=== PATIENT | male | born 1960 | race Hispanic/Latino ===

== ENCOUNTER 2018-03-31 20:03 | Emergency (ER) | payer SELFPAY ==
--- NOTE | 2018-03-31 20:32 | ER ---
Nurse's Notes [facility] Name: Pancho Caballero Age: 58 yrs Sex: Male : 1960 Arrival Date: 03/31/2018 Time: 20:06 Bed 19 Private MD: Diagnosis: Irritant contact dermatitis due to plants, except food Presentation: 03/31 20:17 Presenting complaint: Patient states: "I've had this rash for about a week now, I think bs1 its poison oak, I've had chills, its all over an getting worse.". Transition of care: patient was not received from another setting of care. Onset of symptoms was March 24, 2018. Risk Assessment: Do you want to hurt yourself or someone else? Patient reports no desire to harm self or others. Initial Sepsis Screen: Does the patient meet any 2 criteria? No. Patient's initial sepsis screen is negative. Does the patient have a suspected source of infection? No. Patient's initial sepsis screen is negative. Care prior to arrival: None. 20:17 Method Of Arrival: Ambulatory bs1 20:17 Acuity: HUSSAIN 4 bs1 Historical: - Allergies: 20:21 poison oak/MACARIO; bs1 - Home Meds: 20:21 Lisinopril Oral [Active]; Gemfibrozil Oral [Active]; Metformin Oral [Active]; bs1 Metoprolol Tartrate Oral [Active]; Glipizide Oral [Active]; - PMHx: 20:21 High Cholesterol; Hypertension; Diabetes - NIDDM; bs1 - PSHx: 20:21 None; bs1 - Immunization history:: Adult Immunizations up to date. - Social history:: Smoking status: Patient uses tobacco products, denies chronic smoking, but will smoke occasionally. - Ebola Screening: : Patient negative for fever greater than or equal to 101.5 degrees Fahrenheit, and additional compatible Ebola Virus Disease symptoms Patient denies exposure to infectious person. Screenin:22 Abuse screen: Denies threats or abuse. Denies injuries from another. Nutritional bs1 screening: No deficits noted. Tuberculosis screening: No symptoms or risk factors identified. Fall Risk None identified. Assessment: 20:22 General: Appears uncomfortable, Behavior is calm, cooperative, appropriate for age. bs1 General: Reports chills for 2-3 days. Pain: Complains of pain in generalized body due to rash. Neuro: Level of Consciousness is awake, alert, obeys commands, Oriented to person, place, time, situation, Appropriate for age. Cardiovascular: Denies. Cardiovascular: Denies chest pain, shortness of breath. Respiratory: Airway is patent Breath sounds are clear bilaterally. GI: No signs and/or symptoms were reported involving the gastrointestinal system. : No signs and/or symptoms were reported regarding the genitourinary system. Derm: Skin has blisters on bilateral shoulders/back, some open blisters Rash noted that is draining pus, on generalized contact dermatitis rash from poison oak, patient reports allergy to poison oak/MACARIO. Musculoskeletal: Circulation, motion, and sensation intact. Capillary refill < 3 seconds, Range of motion: intact in all extremities. 20:55 Reassessment: Patient appears in no apparent distress at this time. Patient and/or bs1 family updated on plan of care and expected duration. Pain level reassessed. Patient is alert, oriented x 3, equal unlabored respirations, skin warm/dry/pink. Patient states symptoms have improved. Vital Signs: 20:21 BP 159 / 86; Pulse 103; Resp 19; Temp 98.6(O); Pulse Ox 100% on R/A; Weight 104.33 kg; bs1 Height 5 ft. 9 in. (175.26 cm); Pain 7/10; 20:55 BP 158 / 86; Pulse 98; Resp 18; Pulse Ox 100% on R/A; Pain 4/10; bs1 20:21 Body Mass Index 33.96 (104.33 kg, 175.26 cm) bs1 ED Course: 20:06 Patient arrived in ED. es 20:07 Salomon Acevedo NP is PHCP. pm1 20:07 Navneet Nunez MD is Attending Physician. pm1 20:08 Cate Garner RN is Primary Nurse. bs1 20:19 Triage completed. bs1 20:22 Patient has correct armband on for positive identification. Bed in low position. Call bs1 light in reach. Side rails up X 1. Pulse ox on. NIBP on. 20:25 Arm band placed on right wrist. bs1 20:53 No provider procedures requiring assistance completed. Patient did not have IV access bs1 during this emergency room visit. Administered Medications: 20:37 Drug: SOLU-Medrol 125 mg Route: IM; Site: left gluteus; bs1 20:54 Follow up: Response: No adverse reaction bs1 20:37 Drug: Benadryl 25 mg Route: PO; bs1 20:54 Follow up: Response: No adverse reaction bs1 Outcome: 20:32 Discharge ordered by MD. pm1 20:53 Discharged to home ambulatory, with significant other. bs1 20:53 Condition: stable 20:53 Discharge instructions given to patient, Instructed on discharge instructions, follow up and referral plans. medication usage, Demonstrated understanding of instructions, follow-up care, medications, Prescriptions given X 3. 20:55 Patient left the ED. bs1 Signatures: Thalia Ochoa Patrick, NP PACKAGE WORKER pm1 Cate Garner RN RN bs1
--- NOTE | 2018-03-31 20:32 | EDPHYS ---
Physician Documentation [facility] Name: Pancho Caballero Age: 58 yrs Sex: Male : 1960 Arrival Date: 03/31/2018 Time: 20:06 Bed 19 Private MD: ED Physician Navneet Nunez HPI: 03/31 20:27 This 58 yrs old Male presents to ER via Ambulatory with complaints of Rash. pm1 20:27 The patient's rash thought to be caused by Dermatitis. The rash is located on the pm1 chest, abdomen, right arm and left arm. The rash can be described as macular, raised. Onset: The symptoms/episode began/occurred 1 week(s) ago. Associated signs and symptoms: Pertinent positives: itching, Pertinent negatives: difficulty breathing, fever, swelling of lips, swelling of throat, swelling of tongue, wheezing. Severity of symptoms: in the emergency department the symptoms are unchanged. Treatment given at home: OTC lotion/cream. The patient has not experienced similar symptoms in the past. Patient was cutting poison oak with a weed eater while he was trimming his lawn and the poison oak landed on his arms and chest. Historical: - Allergies: 20:21 poison oak/MACARIO; bs1 - Home Meds: 20:21 Lisinopril Oral [Active]; Gemfibrozil Oral [Active]; Metformin Oral [Active]; bs1 Metoprolol Tartrate Oral [Active]; Glipizide Oral [Active]; - PMHx: 20:21 High Cholesterol; Hypertension; Diabetes - NIDDM; bs1 - PSHx: 20:21 None; bs1 - Immunization history:: Adult Immunizations up to date. - Social history:: Smoking status: Patient uses tobacco products, denies chronic smoking, but will smoke occasionally. - Ebola Screening: : Patient negative for fever greater than or equal to 101.5 degrees Fahrenheit, and additional compatible Ebola Virus Disease symptoms Patient denies exposure to infectious person. ROS: 20:27 Constitutional: Negative for fever, chills, and weight loss, Eyes: Negative for injury, pm1 pain, redness, and discharge, ENT: Negative for injury, pain, and discharge, Neck: Negative for injury, pain, and swelling, Cardiovascular: Negative for chest pain, palpitations, and edema, Respiratory: Negative for shortness of breath, cough, wheezing, and pleuritic chest pain, Abdomen/GI: Negative for abdominal pain, nausea, vomiting, diarrhea, and constipation, Back: Negative for injury and pain, : Negative for injury, bleeding, discharge, and swelling, MS/Extremity: Negative for injury and deformity. 20:27 Skin: Positive for rash, of the left arm and right arm and abdomen and chest. Exam: 20:27 Constitutional: This is a well developed, well nourished patient who is awake, alert, pm1 and in no acute distress. Head/Face: Normocephalic, atraumatic. Eyes: Pupils equal round and reactive to light, extra-ocular motions intact. Lids and lashes normal. Conjunctiva and sclera are non-icteric and not injected. Cornea within normal limits. Periorbital areas with no swelling, redness, or edema. ENT: Nares patent. No nasal discharge, no septal abnormalities noted. Tympanic membranes are normal and external auditory canals are clear. Oropharynx with no redness, swelling, or masses, exudates, or evidence of obstruction, uvula midline. Mucous membranes moist. Neck: Trachea midline, no thyromegaly or masses palpated, and no cervical lymphadenopathy. Supple, full range of motion without nuchal rigidity, or vertebral point tenderness. No Meningismus. Chest/axilla: Normal chest wall appearance and motion. Nontender with no deformity. No lesions are appreciated. Cardiovascular: Regular rate and rhythm with a normal S1 and S2. No gallops, murmurs, or rubs. Normal PMI, no JVD. No pulse deficits. Respiratory: Lungs have equal breath sounds bilaterally, clear to auscultation and percussion. No rales, rhonchi or wheezes noted. No increased work of breathing, no retractions or nasal flaring. Back: No spinal tenderness. No costovertebral tenderness. Full range of motion. 20:27 Skin: Appearance: normal except for affected area, consistent with contact dermatitis. 20:27 Neuro: Orientation: is normal, Motor: is normal, moves all fours. Vital Signs: 20:21 BP 159 / 86; Pulse 103; Resp 19; Temp 98.6(O); Pulse Ox 100% on R/A; Weight 104.33 kg; bs1 Height 5 ft. 9 in. (175.26 cm); Pain 7/10; 20:55 BP 158 / 86; Pulse 98; Resp 18; Pulse Ox 100% on R/A; Pain 4/10; bs1 20:21 Body Mass Index 33.96 (104.33 kg, 175.26 cm) bs1 MDM: 20:08 Patient medically screened. pm1 20:31 Data reviewed: vital signs. Data interpreted: Pulse oximetry: on room air is 100 %. pm1 Interpretation: normal. Counseling: I had a detailed discussion with the patient and/or guardian regarding: the historical points, exam findings, and any diagnostic results supporting the discharge/admit diagnosis, the need for outpatient follow up, to return to the emergency department if symptoms worsen or persist or if there are any questions or concerns that arise at home. Administered Medications: 20:37 Drug: SOLU-Medrol 125 mg Route: IM; Site: left gluteus; bs1 20:54 Follow up: Response: No adverse reaction bs1 20:37 Drug: Benadryl 25 mg Route: PO; bs1 20:54 Follow up: Response: No adverse reaction bs1 Disposition: 21:09 Co-signature as Attending Physician, Navneet Nunez MD I agree with the assessment and kdr plan of care. Disposition: 03/31/18 20:32 Discharged to Home. Impression: Irritant contact dermatitis due to plants, except food. - Condition is Stable. - Discharge Instructions: Contact Dermatitis, Poison [place]. - Prescriptions for Xyzal 5 mg Oral tablet - take 1 tablet by ORAL route once daily As needed; 30 tablet. Medrol (Cal) 4 mg Oral Tablets, Dose Pack - take 1 tablet by ORAL route as directed - follow package instructions; 1 packet. Bactrim DS 800- 160 mg Oral Tablet - take 1 tablet by ORAL route every 12 hours for 10 days; 20 tablet. - Medication Reconciliation Form, Thank You Letter, Antibiotic Education form. - Follow up: Emergency Department; When: As needed; Reason: Worsening of condition. Follow up: Private Physician; When: 2 - 3 days; Reason: Recheck today's complaints, Continuance of care, Re-evaluation by your physician. - Problem is new. - Symptoms have improved. Signatures: Navneet Nunez MD MD kdr Marinas, Patrick, NP [employer] SAL[employer] pm1 Cate Garner RN RN bs1 Corrections: (The following items were deleted from the chart) 20:55 20:32 03/31/2018 20:32 Discharged to Home. Impression: Irritant contact dermatitis due bs1 to plants, except food. Condition is Stable. Forms are Medication Reconciliation Form, Thank You Letter, Antibiotic Education, Prescription Opioid Use. Follow up: Emergency Department; When: As needed; Reason: Worsening of condition. Follow up: Private Physician; When: 2 - 3 days; Reason: Recheck today's complaints, Continuance of care, Re-evaluation by your physician. Problem is new. Symptoms have improved. pm1
[2018-03-31] MEDS ORDERED: DIPHENHYDRAMINE 25 MG TAB/CAP ONE (20:35)
[2018-03-31] MEDS ORDERED: METHYLPREDNISOLONE 125 MG INJ ONE (20:35)
== END 2018-03-31 20:55 | disposition home or self-care (01) ==
LOC: ER 20:03
DX: L24.7 Irritant contact dermatitis due to plants, except food (principal); I10 Essential (primary) hypertension; E11.9 Type 2 diabetes mellitus without complications
CPT/HCPCS: 96372; 99283; J2930

== ENCOUNTER 2018-07-31 05:43 | Emergency (ER) | payer SELFPAY ==
--- NOTE | 2018-07-31 06:12 | ER ---
Nurse's Notes [facility] Name: Pancho Caballero Age: 58 yrs Sex: Male : 1960 Arrival Date: 07/31/2018 Time: 05:46 Bed 14 Private MD: DARIEL CONRAD Diagnosis: Pain in left leg Presentation: 07/31 06:00 Presenting complaint: Patient states: spasms in his L quadriceps x 3 weeks. Reports it aa1 began when he slipped off a trailer and has been taking muscle relaxers that his PCP prescribed him for it but it still has not resolved. Amb w/steady gait. CMS intact. Transition of care: patient was not received from another setting of care. Onset of symptoms was July 07, 2018. Risk Assessment: Do you want to hurt yourself or someone else? Patient reports no desire to harm self or others. Initial Sepsis Screen: Does the patient meet any 2 criteria? No. Patient's initial sepsis screen is negative. Does the patient have a suspected source of infection? No. Patient's initial sepsis screen is negative. Care prior to arrival: None. 06:00 Method Of Arrival: Ambulatory aa1 06:00 Acuity: HUSSANI 4 aa1 Historical: - Allergies: 06:07 poison oak/MACARIO; aa1 - Home Meds: 06:07 gemfibrozil 600 mg oral tab 1 tab 2 times per day [Active]; metoprolol tartrate 50 mg aa1 oral tab 1 tab 2 times per day [Active]; metformin 1,000 mg oral tab 1 tab 2 times per day [Active]; lisinopril 20 mg oral tab 1 tab twice a day [Active]; glipizide 10 mg oral tab 2 tabs 2 times per day [Active]; cyclobenzaprine 10 mg Oral tab 1 tab 2 times per day [Active]; - PMHx: 06:07 Diabetes - NIDDM; High Cholesterol; Hypertension; aa1 - PSHx: 06:07 None; aa1 - Immunization history:: Flu vaccine is not up to date. - Social history:: Smoking status: Patient uses tobacco products, denies chronic smoking, but will smoke occasionally. - Ebola Screening: : No symptoms or risks identified at this time. Screenin:00 Abuse screen: Denies threats or abuse. Denies injuries from another. Nutritional aa1 screening: No deficits noted. Tuberculosis screening: No symptoms or risk factors identified. Fall Risk None identified. Assessment: 06:00 General: Appears in no apparent distress. comfortable, Behavior is calm, cooperative, aa1 appropriate for age. Pain: Complains of pain in left quadriceps Pain currently is 10 out of 10 on a pain scale. Pain began 3 weeks ago. Neuro: Level of Consciousness is awake, alert, obeys commands, Oriented to person, place, time, situation, Moves all extremities. Gait is steady. Respiratory: Airway is patent Respiratory effort is even, unlabored, Respiratory pattern is regular, symmetrical. GI: No signs and/or symptoms were reported involving the gastrointestinal system. : No signs and/or symptoms were reported regarding the genitourinary system. EENT: No signs and/or symptoms were reported regarding the EENT system. Derm: Skin is intact, is healthy with good turgor, Skin is pink, warm \T\ dry. Musculoskeletal: Circulation, motion, and sensation intact. Capillary refill < 3 seconds, Range of motion: intact in all extremities. 06:22 Reassessment: Patient appears in no apparent distress at this time. Patient is alert, aa1 oriented x 3, equal unlabored respirations, skin warm/dry/pink. Discussed d/c \T\ f/u instructions with pt \T\ spouse; denies questions or concerns at this time. Vital Signs: 06:07 BP 142 / 91; Pulse 88; Resp 18; Temp 97.8; Pulse Ox 100% on R/A; Weight 99.79 kg; aa1 Height 5 ft. 9 in. (175.26 cm); Pain 10/10; 06:07 Body Mass Index 32.49 (99.79 kg, 175.26 cm) aa1 ED Course: 05:46 Patient arrived in ED. am2 05:47 DARIEL CONRAD is Private Physician. am2 06:00 Dimple Gant [facility]C [facility]. kb 06:00 Fabian Elliott MD is Attending Physician. kb 06:00 Patient has correct armband on for positive identification. Bed in low position. Call aa1 light in reach. Pulse ox on. NIBP on. 06:02 Triage completed. aa1 06:07 Arm band placed on right wrist. aa1 06:22 Chambers, Blanca, RN is Primary Nurse. aa1 06:22 No provider procedures requiring assistance completed. Patient did not have IV access aa1 during this emergency room visit. Administered Medications: No medications were administered Outcome: 06:11 Discharge ordered by . tara 06:27 Patient left the ED. aa1 Signatures: Dimple Gant, LORELEI-C RECREATIONAL RESORT MANAGER-Blanca Luna, RN RN aa1 Charleen Gee am2
--- NOTE | 2018-07-31 06:12 | EDPHYS ---
Physician Documentation [facility] Name: Pancho Caballero Age: 58 yrs Sex: Male : 1960 Arrival Date: 07/31/2018 Time: 05:46 Bed 14 Private MD: DARIEL CONRAD ED Physician Fabian Elliott HPI: 07/31 06:06 This 58 yrs old Male presents to ER via Ambulatory with complaints of Leg Pain.kb 06:06 The patient presents with pain, that is acute. The complaints affect the left kb quadriceps. Context: The problem was sustained outdoors, resulted from "doing the splits", the patient can fully bear weight, the patient is able to ambulate. Onset: The symptoms/episode began/occurred 3 week(s) ago. Modifying factors: The symptoms are alleviated by nothing. the symptoms are aggravated by nothing. Associated signs and symptoms: The patient has no apparent associated signs or symptoms. Treatment prior to arrival includes: prescription medications, muscle relaxant. Severity of symptoms: At their worst the symptoms were mild, moderate, in the emergency department the symptoms are unchanged. The patient has not experienced similar symptoms in the past. The patient has been recently seen by a physician: the patient's primary care provider, with similar presenting complaints, but the patient's symptoms have persisted. Pt reports he was standing on the back of his truck, his foot slipped and caused him to do the splits. States he thinks he pulled a muscle because it has been hurting since then. Occurred 3 weeks ago. Has been seen by PCP and prescribed Flexeril, but it isn't helping. . Historical: - Allergies: 06:07 poison oak/MACARIO; aa1 - Home Meds: 06:07 gemfibrozil 600 mg oral tab 1 tab 2 times per day [Active]; metoprolol tartrate 50 mg aa1 oral tab 1 tab 2 times per day [Active]; metformin 1,000 mg oral tab 1 tab 2 times per day [Active]; lisinopril 20 mg oral tab 1 tab twice a day [Active]; glipizide 10 mg oral tab 2 tabs 2 times per day [Active]; cyclobenzaprine 10 mg Oral tab 1 tab 2 times per day [Active]; - PMHx: 06:07 Diabetes - NIDDM; High Cholesterol; Hypertension; aa1 - PSHx: 06:07 None; aa1 - Immunization history:: Flu vaccine is not up to date. - Social history:: Smoking status: Patient uses tobacco products, denies chronic smoking, but will smoke occasionally. - Ebola Screening: : No symptoms or risks identified at this time. ROS: 06:06 Constitutional: Negative for fever, chills, and weight loss, Cardiovascular: Negative kb for chest pain, palpitations, and edema, Respiratory: Negative for shortness of breath, cough, wheezing, and pleuritic chest pain, Abdomen/GI: Negative for abdominal pain, nausea, vomiting, diarrhea, and constipation, Skin: Negative for injury, rash, and discoloration, Neuro: Negative for headache, weakness, numbness, tingling, and seizure. 06:06 MS/extremity: Positive for pain, of the left quadriceps. Exam: 06:06 Constitutional: This is a well developed, well nourished patient who is awake, alert, kb and in no acute distress. Head/Face: Normocephalic, atraumatic. Chest/axilla: Normal chest wall appearance and motion. Nontender with no deformity. No lesions are appreciated. Cardiovascular: Regular rate and rhythm with a normal S1 and S2. No gallops, murmurs, or rubs. Normal PMI, no JVD. No pulse deficits. Respiratory: Lungs have equal breath sounds bilaterally, clear to auscultation and percussion. No rales, rhonchi or wheezes noted. No increased work of breathing, no retractions or nasal flaring. Abdomen/GI: Soft, non-tender, with normal bowel sounds. No distension or tympany. No guarding or rebound. No evidence of tenderness throughout. Skin: Warm, dry with normal turgor. Normal color with no rashes, no lesions, and no evidence of cellulitis. Neuro: Awake and alert, GCS 15, oriented to person, place, time, and situation. Cranial nerves II-XII grossly intact. Motor strength 5/5 in all extremities. Sensory grossly intact. Cerebellar exam normal. Normal gait. 06:06 Musculoskeletal/extremity: Extremities: grossly normal except: noted in the left quadriceps: pain, ROM: intact in all extremities, Circulation is intact in all extremities. Sensation intact. Weight bearing: able to fully bear weight. Vital Signs: 06:07 BP 142 / 91; Pulse 88; Resp 18; Temp 97.8; Pulse Ox 100% on R/A; Weight 99.79 kg; aa1 Height 5 ft. 9 in. (175.26 cm); Pain 06/26; 06:07 Body Mass Index 32.49 (99.79 kg, 175.26 cm) aa1 MDM: 06:01 Patient medically screened. kb 06:10 Data reviewed: vital signs, nurses notes. Data interpreted: Pulse oximetry: on room air kb is 100 %. Interpretation: normal. Counseling: I had a detailed discussion with the patient and/or guardian regarding: the historical points, exam findings, and any diagnostic results supporting the discharge/admit diagnosis, the need for outpatient follow up, a family practitioner, to return to the emergency department if symptoms worsen or persist or if there are any questions or concerns that arise at home. Administered Medications: No medications were administered Disposition: 07/31/18 06:11 Discharged to Home. Impression: Pain in left leg. - Condition is Stable. - Discharge Instructions: Musculoskeletal Pain. - Prescriptions for Skelaxin 800 mg Oral Tablet - take 1 tablet by ORAL route every 8 hours As needed; 21 tablet. Diclofenac Sodium 75 mg Oral Tablet, Delayed Release (E.C.) - take 1 tablet by ORAL route 2 times per day As needed; 30 tablet. - Medication Reconciliation Form, Thank You Letter, Antibiotic Education, Prescription Opioid Use form. - Work release form (08/01/18 05:32). ds1 - Follow up: Emergency Department; When: As needed; Reason: Worsening of condition. Follow up: Private Physician; When: 2 - 3 days; Reason: Recheck today's complaints, Continuance of care, Re-evaluation by your physician. Addendum: 08/03/2018 06:40 Co-signature as Attending Physician, Fabian Elliott MD. g s Signatures: Dimple Gant, HERLINDAC LORELEI-Blanca Luna RN RN aa1 Fabian Elliott MD MD gs San[place], Demi ds1 Corrections: (The following items were deleted from the chart) 07/31 06:27 06:11 07/31/2018 06:11 Discharged to Home. Impression: Pain in left leg. Condition is aa1 Stable. Forms are Medication Reconciliation Form, Thank You Letter, Antibiotic Education, Prescription Opioid Use. Follow up: Emergency Department; When: As needed; Reason: Worsening of condition. Follow up: Private Physician; When: 2 - 3 days; Reason: Recheck today's complaints, Continuance of care, Re-evaluation by your physician. kb
== END 2018-07-31 06:27 | disposition home or self-care (01) ==
LOC: ER 05:43
DX: M79.605 Pain in left leg (principal); I10 Essential (primary) hypertension; E78.00 Pure hypercholesterolemia, unspecified; E11.9 Type 2 diabetes mellitus without complications; Z72.0 Tobacco use; Z91.048 Other nonmedicinal substance allergy status
CPT/HCPCS: 99282

== ENCOUNTER 2021-07-14 11:04 | Emergency (ER) | payer SELFPAY ==
--- NOTE | 2021-07-14 11:54 | RAD REPORT ---
EXAM DESCRIPTION: RAD - Ankle Left 3 View - 07/14/2021 11:30 am CLINICAL HISTORY: PAINankle trauma COMPARISON: No comparisons FINDINGS: Transverse fracture is present through the medial malleolus. There is slight widening of t he joint space between the medial malleolus and talus. Oblique fracture of the distal fibula is prese nt. One- 2 mm of lateral displacement noted. No angulation deformity. There is slight cortical irregu larity at the posterior malleolus near the articular surface of the distal tibia. No joint effusion s een. No joint space narrowing. Soft tissue swelling is present. IMPRESSION: Patient has a bimalleolar fracture with very slight 1- 2 mm lateral displacement of the distal fibula fracture fragment and the dome of the talus. Very slight cortical irregularity of the posterior malleolus. This could be a minimal fracture withou t displacement. Any abnormality here would not likely alter medical management.
--- NOTE | 2021-07-14 12:21 | EDPHYS ---
Physician Documentation [facility] Name: Pancho Caballero Age: 61 yrs Sex: Male : 1960 Arrival Date: 07/14/2021 Time: 11:06 Bed 11 Private MD: ED Physician Jalen Vera HPI: 07/14 12:10 This 61 yrs old Male presents to ER via Ambulatory with complaints of Ankle rn Injury. 12:10 The patient presents with decreased range of motion, an injury, pain. The complaints rn affect the left ankle. Onset: The symptoms/episode began/occurred 4 day(s) ago. Associated signs and symptoms: Pertinent positives: swelling, Pertinent negatives: weakness. Modifying factors: The symptoms are alleviated by elevation of extremity, ice packs, the symptoms are aggravated by weight bearing, movement. Severity of symptoms: At their worst the symptoms were moderate, in the emergency department the symptoms have improved. The patient has not experienced similar symptoms in the past. The patient has not recently seen a physician. She reports misstep with inversion of left foot a few days ago. Persistent swelling and pain with bruising to the area. Not on blood thinners. States mainly hurts on the medial side of the left ankle. No injury to the knee or hips or back.. Historical: - Allergies: 11:13 poison oak/MACARIO; ch5 - Home Meds: 11:13 cyclobenzaprine 10 mg Oral tab 1 tab 2 times per day [Active]; gemfibrozil 600 mg Oral ch5 tab 1 tab 2 times per day [Active]; glipizide 10 mg Oral tab 2 tabs 2 times per day [Active]; lisinopril 20 mg Oral tab 1 tab twice a day [Active]; metformin 1,000 mg Oral tab 1 tab 2 times per day [Active]; metoprolol tartrate 50 mg Oral tab 1 tab 2 times per day [Active]; - PMHx: 11:13 Diabetes - NIDDM; High Cholesterol; Hypertension; ch5 - Immunization history:: Adult Immunizations up to date, Client reports receiving the 2nd dose of the Covid vaccine. - Social history:: Smoking status: Patient reports the use of cigarette tobacco products, denies chronic smoking, but will smoke occasionally. - Family history:: not pertinent. - Hospitalizations: : No recent hospitalization is reported. ROS: 12:10 MS/Extremity: Positive for injury and swelling to left ankle Skin: Positive for rn ecchymosis, negative for laceration Neuro: Negative for weakness of foot or numbness and tingling Exam: 12:10 Constitutional: This is a well developed, well nourished patient who is awake, alert, rn and in no acute distress. Able to get himself into room with crutches on own power. Skin: Moderate ecchymosis along the medial malleolus just inferior to the medial malleolus. No lacerations. MS/ Extremity: Pulses equal, no cyanosis. Neurovascular intact. Mild tenderness of medial and lateral malleolus. No tenderness along anterior or proximal tibia or fibula. No tenderness along posterior tibia or Achilles tendon. Vital Signs: 11:09 Pulse 98; Resp 18; Temp 97.8; Pulse Ox 100% ; Weight 99.79 kg; Height 5 ft. 9 in. ch5 (175.26 cm); Pain 8/10; 11:14 BP 176 / 92; ch5 11:09 Body Mass Index 32.49 (99.79 kg, 175.26 cm) ch5 Procedures: 12:10 Splinting: Splint applied to left ankle using Orthoglass splint, applied by myself. rn Examined by nv, post splint application: neurovascular intact, 2+ distal pulses palpable, brisk capillary refill noted, Patient tolerated well. MDM: 11:15 Patient medically screened. rn 12:19 Differential diagnosis: fracture, sprain. Data reviewed: vital signs, nurses notes, rn radiologic studies, plain films, and as a result, I will discharge patient. Test interpretation: by ED physician or midlevel provider: plain radiologic studies, X-ray left ankle shows bimalleolar ankle fracture with minimal displacement. Counseling: I had a detailed discussion with the patient and/or guardian regarding: the historical points, exam findings, and any diagnostic results supporting the discharge/admit diagnosis, radiology results, the need for outpatient follow up, to return to the emergency department if symptoms worsen or persist or if there are any questions or concerns that arise at home. Response to treatment: the patient's symptoms have mildly improved after treatment, and as a result, I will discharge patient. Special discussion: I discussed with the patient/guardian in detail that at this point there is no indication for admission to the hospital. It is understood, however, that if the symptoms persist or worsen the patient needs to return immediately for re-evaluation. Based on the history and exam findings, there is no indication for further emergent testing or inpatient evaluation. I discussed with the patient/guardian the need to see the orthopedic surgeon for further evaluation of the symptoms. 07/14 11:15 Order name: XRAY Ankle LEFT 3 view; Complete Time: 12:01 rn 07/14 12:10 Order name: Splint - Ankle: Posterior; Complete Time: 12:39 rn 07/14 12:10 Order name: Splint - Ankle: Orthoglass: Stirrup; Complete Time: 12:39 rn 07/14 12:10 Order name: Crutches; Complete Time: 12:39 rn Administered Medications: No medications were administered Disposition Summary: 07/14/21 12:20 Discharge Ordered Location: Home rn Problem: new rn Symptoms: have improved rn Condition: Stable rn Diagnosis - Displaced bimalleolar fracture of left lower leg, initial encounter for closed rn fracture Followup: rn - With: Dalton Oliveros MD - When: 5 - 6 days - Reason: Recheck today's complaints, Re-evaluation by your physician Discharge Instructions: - Discharge Summary Sheet rn - Ankle Fracture rn - Nondisplaced Bimalleolar Ankle Fracture Treated With Immobilization rn Forms: - Medication Reconciliation Form rn - Thank You Letter rn - Antibiotic pattern carrier - Prescription Opioid Use rn - Work release form ap3 Prescriptions: - Tylenol-Codeine #3 300 mg-30 mg Oral - take 1 tablet by ORAL route every 6-8 hours As needed; 15 tablet; Refills: 0, rn Product Selection Permitted Signatures: Dispatcher [employer] Jaeln Rodriguez MD MD rn Heath, Christopher, RN RN ch5
--- NOTE | 2021-07-14 12:21 | ER ---
Nurse's Notes [facility] Name: Pancho Caballero Age: 61 yrs Sex: Male : 1960 Arrival Date: 07/14/2021 Time: 11:06 Bed 11 Private MD: Diagnosis: Displaced bimalleolar fracture of left lower leg, initial encounter for closed fracture Presentation: 07/14 11:09 Chief complaint: Patient states: Sprained left ankle Sunday. Tried to take care of it ch5 at home with no relief. Using his own crutches. Coronavirus screen: Client denies travel out of the [place] in the last 14 days. At this time, the client does not indicate any symptoms associated with coronavirus-19. Ebola Screen: Patient negative for fever greater than or equal to 101.5 degrees Fahrenheit, and additional compatible Ebola Virus Disease symptoms Patient denies exposure to infectious person. Patient denies travel to an Ebola-affected area in the 21 days before illness onset. No symptoms or risks identified at this time. Initial Sepsis Screen: Does the patient meet any 2 criteria? No. Patient's initial sepsis screen is negative. Does the patient have a suspected source of infection? No. Patient's initial sepsis screen is negative. Risk Assessment: Do you want to hurt yourself or someone else? Patient reports no desire to harm self or others. Onset of symptoms was July 09, 2021. 11:09 Method Of Arrival: Ambulatory [facility] 11:09 Acuity: HUSSAIN 4 5 Triage Assessment: 11:13 General: Appears in no apparent distress. uncomfortable, Behavior is calm, cooperative. 5 Pain: Complains of pain in left foot. Musculoskeletal: Reports Pain is 8 out of 10 on a pain scale. Historical: - Allergies: 11:13 poison oak/MACARIO; ch5 - Home Meds: 11:13 cyclobenzaprine 10 mg Oral tab 1 tab 2 times per day [Active]; gemfibrozil 600 mg Oral ch5 tab 1 tab 2 times per day [Active]; glipizide 10 mg Oral tab 2 tabs 2 times per day [Active]; lisinopril 20 mg Oral tab 1 tab twice a day [Active]; metformin 1,000 mg Oral tab 1 tab 2 times per day [Active]; metoprolol tartrate 50 mg Oral tab 1 tab 2 times per day [Active]; - PMHx: 11:13 Diabetes - NIDDM; High Cholesterol; Hypertension; ch5 - Immunization history:: Adult Immunizations up to date, Client reports receiving the 2nd dose of the Covid vaccine. - Social history:: Smoking status: Patient reports the use of cigarette tobacco products, denies chronic smoking, but will smoke occasionally. - Family history:: not pertinent. - Hospitalizations: : No recent hospitalization is reported. Screenin:26 Abuse screen: Denies threats or abuse. Nutritional screening: No deficits noted. ap3 Tuberculosis screening: No symptoms or risk factors identified. Fall Risk Fall in past 12 months (25 points). No secondary diagnosis (0 pts). No IV (0 pts). Ambulatory Aid- Crutches/Cane/Walker (15 pts). Gait- Impaired (20 pts.). Mental Status- Oriented to own ability (0 pts). Total Wilcox Fall Scale indicates High Risk Score (45 or more points). Fall prevention measures have been instituted. Side Rails Up X 2 Placed Close to Nursing Station Frequent Obs/Assessments Occuring As available patient and family educated on Fall Prevention Program and Strategies. Assessment: 11:25 General: Appears uncomfortable, Behavior is calm, cooperative. Pain: Complains of pain ap3 in anterior aspect of left ankle Pain began suddenly, Sunday. Neuro: Level of Consciousness is awake, alert, obeys commands, Oriented to person, place, time, situation, Appropriate for age Gait is using crutches. Speech is normal. Cardiovascular: Patient's skin is warm and dry. Respiratory: Airway is patent Respiratory effort is even, unlabored, Respiratory pattern is regular, agonal. Derm: Bruising that is dark purple, on medial aspect of left foot. Musculoskeletal: Swelling present in left foot. Vital Signs: 11:09 Pulse 98; Resp 18; Temp 97.8; Pulse Ox 100% ; Weight 99.79 kg; Height 5 ft. 9 in. ch5 (175.26 cm); Pain 8/10; 11:14 BP 176 / 92; ch5 11:09 Body Mass Index 32.49 (99.79 kg, 175.26 cm) ch5 ED Course: 11:06 Patient arrived in ED. ds1 11:13 Triage completed. ch5 11:13 Arm band placed on left wrist. ch5 11:15 Jalen Vera MD is Attending Physician. rn 11:19 Charleen Garcia, JOCELYN is Primary Nurse. ap3 11:27 Call light in reach. Pulse ox on. NIBP on. Door closed. Noise minimized. ap3 11:30 XRAY Ankle LEFT 3 view In Process Unspecified. EDMS 12:04 Orthoglass splint: Posterior short lleg splint applied on left leg. stirrup splint mh5 applied on left leg. 12:19 Dalton Oliveros MD is Referral Physician. rn 12:45 No provider procedures requiring assistance completed. Patient did not have IV access ap3 during this emergency room visit. Administered Medications: No medications were administered Outcome: 12:20 Discharge ordered by . rn 12:45 Discharged to home with crutches, with family. ap3 12:45 Condition: good 12:45 Discharge instructions given to patient, family, Instructed on discharge instructions, follow up and referral plans. medication usage, crutch walking, Demonstrated understanding of instructions, follow-up care, medications, crutch walking, Prescriptions given X 1. 12:45 Patient left the ED. ap3 Signatures: Dispatcher [employer] EDMT Lis Pham ds1 Jalen Vera MD MD rn Martinez, Maria Charleen Ham, RN RN ap3 Jose Wong RN RN 5
[2021-07-14 12:51] VITALS: TEMP 97.8; O2SAT 100
[2021-07-14 12:52] VITALS: BP 176/92
== END 2021-07-14 12:45 | disposition home or self-care (01) ==
LOC: ER 11:04
PROC: 2W3RX1Z Immobilization of Left Lower Leg using Splint (ICD-10-PCS; principal; 2021-07-14)
DX: S82.842A Displaced bimalleolar fracture of left lower leg, initial encounter for closed fracture (principal); I10 Essential (primary) hypertension; E11.9 Type 2 diabetes mellitus without complications; F17.210 Nicotine dependence, cigarettes, uncomplicated
CPT/HCPCS: 99284